=== PATIENT | female | born 1960 | race Caucasian/White ===

== ENCOUNTER 2023-08-27 07:22 | Outpatient (CLI) | payer MEDICAID, SELFPAY ==
--- NOTE | 2023-08-27 07:29 | MR_ITS ---
WS: [id number] MRI LUMBAR SPINE NONCONTRAST HISTORY: M54.16 - Radiculopathy, lumbar region COMPARISON: None available. TECHNIQUE: Sagittal and axial multisequence imaging is submitted. Straightening of the normal lumbar lordosis. L4 retrolisthesis by 4 mm, L3 retrolisthesis by 2 mm. Ad vanced degenerative disc disease at L3-4 and L4-5. Reactive marrow edema along the endplates of L3 an d L4 extending into the posterior elements on the LEFT. No acute fracture. Schmorl's nodes defects at L1, L2, L3 and L4. Conus terminates normally at L1-2 disc level. L1-L2: Mild ligamentum flavum and facet arthritis. No stenosis. L2-L3: Very mild annular disc bulging with ligamentum flavum and facet arthritis. No stenosis. L3-L4: Diffuse asymmetric disc bulging. Disc contacts the ventral thecal sac with displacement and ex tension into the subarticular recesses. Disc contacts the traversing L4 nerve roots. Bilateral forami nal disc protrusions with annular fissures. Slightly greater disc protrusion on the LEFT. Ligamentum flavum and mild facet arthritis. Fluid in the facet joints. Moderate central with mild to moderate manning barticular recess and foraminal stenosis. L4-L5: Mild annular disc bulging with disc encroaching upon the ventral thecal sac and subarticular r ecesses. There is disc and osteophyte contact on the traversing L5 nerve roots. Osteophytes, disc dis ease and facet disease contribute to moderate to severe bilateral foraminal stenosis. No significant central stenosis. L5-S1: Moderate bilateral facet joint arthritis. No stenosis. Areas of cortical thinning involving each kidney. MR/MR lumbar spine wo con* [id number] IMPRESSION: 1. Advanced degenerative disc disease at L3-4 and L4-5. 2. Reactive marrow edema involving the endplates of L3 and L4 with extension i nto the posterior elements on the LEFT. 3. L4-5: Moderate to severe bilateral foraminal stenosis. Stenosis due to comb ination of disc, facet and ligamentum flavum disease. There is additional disc contact on the traversing L5 nerve roots. 4. L3-4: Asymmetric disc bulging greatest on the LEFT. Bilateral foraminal dis c protrusions. Significant disc contact on the L4 nerve roots in the subarticul ar recesses. Moderate central with mild to moderate bilateral subarticular rece ss and foraminal stenosis.
== END 2023-08-27 07:23 | disposition home or self-care (01) ==
LOC: RAD 07:22
PROVIDERS: Family Provider Family Medicine; Visit Provider Family Medicine
DX: M54.16 Radiculopathy, lumbar region (principal); M51.36 Other intervertebral disc degeneration, lumbar region; M99.63 Osseous and subluxation stenosis of intervertebral foramina of lumbar region; M48.061 Spinal stenosis, lumbar region without neurogenic claudication
CPT/HCPCS: 72148

== ENCOUNTER → 2023-09-17 10:32 | Outpatient (BNVA) | payer MEDICAID, SELFPAY | PROVIDERS: Family Provider Family Medicine; Visit Provider Orthopaedic Surgery | DX: M51.16 Intervertebral disc disorders with radiculopathy, lumbar region (principal) | CPT/HCPCS: 72110 ==